=== PATIENT | female | born 1965 | race Caucasian/White ===

== ENCOUNTER 2016-09-02 15:51 | Emergency (ER) | payer OTHER ==
[~2016-09-02] VITALS: Ht 149.9 cm; Wt 59.0 kg
--- NOTE | 2016-09-02 16:49 | RADIOLOGY REPORT ---
EXAMINATION: XR CHEST CLINICAL INFORMATION: Cough. Rule out pneumonia. COMPARISON: 04/23/2009 TECHNIQUE: PA and lateral views of the chest were obtained. FINDINGS: Cardiac and mediastinal silhouette is within normal limits. Lungs are symmetric expanded. There are no pleural effusions or pneumothorax. No focal consolidation. No acute osseous abnormality. IMPRESSION: No evidence of acute process.
--- NOTE | 2016-09-02 17:26 | ED INFLUENZA/URI COMPLAINT ---
History of Present Illness General Chief Complaint: Upper Respiratory Sx/Fever Stated Complaint: COUGH CONGESTION X3 WEEKS SOB O2 SAT 99 Source: patient, old records Exam Limitations: no limitations Vital Signs & Intake/Output Vital Signs & Intake/Output Vital Signs Date Time Temp Pulse Resp B/P Pulse O2 O2 Flow FiO2 Ox Delivery Rate 09/02 1741 98.6 86 18 110/84 98 Room Air 09/02 1608 98.6 66 16 106/69 96 Room Air Allergies Coded Allergies: NO KNOWN ALLERGIES (05/06/11) Reconcile Medications Amoxicillin/Potassium Clav (Augmentin 875-125 Tablet) 875 MG-125 MG TABLET 1 TAB PO BID BRONCHITIS Fluconazole (Diflucan) 150 MG TABLET 1 TAB PO ONCE CANDIDIASIS Mometasone Furoate (Nasonex) 50 MCG SPRAY.PUMP 2 SPRAY NASB DAILY RHINITIS Robitussin AC (Guaifenesin-Codeine Syrup) 200 MG-20 MG/10 ML LIQUID 10 ML PO Q6HR PRN COUGH Triage Note: 51 Y/O FEMALE C/O URI SYMPTOMS X 3 WEEKS DESPITE BEING EVAL'D AT WALK IN TWICE AND BEING ON Z PACK, PREDNISONE AND BREATHING TREATMENTS. REPORTS SINUS CONGESTION "DRIPPING INTO MY LUNGS". PT MOST RECENTLY FINISHED COURSE OF DOXYCYCLINE. SPEAKING COMPLETE SENTENCES WITH NO DISTRESS NOTED, SAT 96% Triage Nurses Notes Reviewed? yes Onset: Abrupt Duration: week(s): (2), constant Timing: recent history Severity: moderate Severity Numbers: 5 Prior Episodes/Possible Cause: occassional episodes No Modifying Factors: none Associated Symptoms: cough, muscle aches, nasal congestion, nasal drainage HPI: 51-year-old female presents to emergency room complaining of a nonproductive cough associated with rhinorrhea congestion generalized bodyaches for the past 3 weeks. The patient has been on 2 courses of azithromycin and doxycycline in addition with prednisone and pro-air inhaler without improvement. She denies any fevers chills shortness of breath chest pain nausea vomiting or diarrhea. The patient is an active smoker. There are no modifying factors or associated symptoms otherwise no recent travel. No pain with inspiration. She denies any abdominal pain chest pain palpitations. The patient is requesting Augmentin today for her symptoms (GAURI MOTT) Past History Travel History Traveled to [place] past 21 day No Medical History Any Pertinent Medical History? none Neurological: NONE EENT: NONE Cardiovascular: NONE Respiratory: NONE Gastrointestinal: NONE Hepatic: NONE Renal: NONE Musculoskeletal: NONE Psychiatric: NONE Endocrine: NONE Blood Disorders: NONE Cancer(s): NONE SEAMLESS TUBE DRAWER/Reproductive: NONE Surgical History Surgical History: none Psychosocial History What is your primary language Russian Tobacco Use: Current Daily Use Daily Tobacco Use Amount/Type: => 5 Cigarettes daily Family History Hx Contributory? No (GAURI MOTT) Review of Systems Review of Systems Constitutional: Reports: see HPI. All Other Systems: Reviewed and Negative Comments Review of systems: See HPI, All other systems negative. Constitutional, no chills no fever, no malaise HEENT: No visual changes no sore throat congestion, Cardiovascular: No chest pain , no palpitation Skin, no rashes, no change in skin Respiratory: No dyspnea cough no sputum GI: No nausea no vomiting, no diarrhea : No dysuria Muscle skeletal: No joint pain,no back pain, no neck pain, Neurologic: No numbness no confusion, no headache Psych: No stress Heme/endocrine: No bruising no bleeding Immunology: No lymphadenopathy (GAURI MOTT) Physical Exam Physical Exam General Appearance: well developed/nourished, alert, awake Ears, Nose, Throat: normal ENT inspection, moist mucous membrane, hearing grossly normal, Tympanic normal Comments: Well-developed well-nourished patient in no apparent distress. Head/Face: Atraumatic, no maxillary/frontal sinus tenderness, no facial swelling Eyes: PERRL, EOMI, no conjunctival injection Ear:External auditory canal and Tympanic membranes clear, no erythema, no FB. Nose: atraumatic.Normal inspection: No bleeding Throat: Moist mucous membranes.Pharynx normal. No pharyngeal erythema/exudate seen. No stridor/drooling or assymetry. No swelling or edema. Neck: Supple, no lymphadenopathy, FROM Back: FROM, Nontender Cardiovascular: Regular rate and rhythms no murmurs rubs or gallops, Respiratory: Chest nontender.There were no bony deformities, no asymmetry. No respiratory distress. Patient speaking in full complete sentences. Breath sounds clear to auscultation bilaterally: NO W/R/R Extremities: full range of motion Neuro: Alert and oriented x3 Skin: Warm & dry;No appreciable rash on exposed skin Psych: Mood affect normal, normal memory normal judgment. Core Measures Severe Sepsis Present: No Septic Shock Present: No (GAURI MOTT) Progress Differential Diagnosis: influenza, pneumonia, pharyngitis, sinusitis, BRONCHITIS Plan of Care: I discussed with the patient her chest x-ray results patient clinically appears well speaking in full complete sentences. Discussed with her at the symptoms are most likely viral etiology however the patient is insistent stating that Augmentin has helped her in the past. We will treat her symptoms supportively with Robitussin with codeine Mucinex, Nasonex. Advise close follow-up with her primary care physician return at anytime sooner with any concerns as her of her questions she feels comfortable with this plan Diagnostic Imaging: Viewed by Me: Radiology Read. Discussed w/RAD: Radiology Read. Radiology Impression: PATIENT: PACO LUCAS PRESENT AGE: 51 PATIENT ACCOUNT NO: [id number] : 65 LOCATION: [facility] [place] ORDERING PHYSICIAN: HAYDEN LAWS MD SERVICE DATE: 09/02/16-160 EXAM TYPE: RAD - XRY- CHEST XRAY, PA AND LATERAL EXAMINATION: XR CHEST CLINICAL INFORMATION: Cough. Rule out pneumonia. COMPARISON: 04/23/2009 TECHNIQUE: PA and lateral views of the chest were obtained. FINDINGS: Cardiac and mediastinal silhouette is within normal limits. Lungs are symmetric expanded. There are no pleural effusions or pneumothorax. No focal consolidation. No acute osseous abnormality. IMPRESSION: No evidence of acute process. DICTATED BY: LORRI FARIAS MD DATE/TIME DICTATED:09/02/161643 PIPELINE SYSTEMS OPERATOR:GLENN DATE/TIME TRANSCRIBED:1643 CONFIDENTIAL, DO NOT COPY WITHOUT APPROPRIATE AUTHORIZATION. < Electronically signed in Other Vendor System> SIGNED BY: LORRI FARIAS MD 09/02/161648 Initial ED EKG: none (GAURI MOTT) Departure Departure Time of Disposition: 1736 Disposition: HOME OR SELF CARE Condition: Stable Clinical Impression Primary Impression: Bronchitis Referrals: PATIENT HAS NO PRIMARY CARE DR (PCP/Family) Additional Instructions: Follow-up with your primary care physician. Robitussin with codeine, Augmentin, Nasonex as directed continue using [id number] Mucinex to help with her symptoms. These prescriptions and Diflucan were sent to your pharmacy Departure Forms: Customer Survey General Discharge Information Prescriptions: Current Visit Scripts Robitussin AC (Guaifenesin-Codeine Syrup) 10 ML PO Q6HR PRN COUGH #200 ML Amoxicillin/Potassium Clav (Augmentin 875-125 Tablet) 1 TAB PO BID #14 TAB Mometasone Furoate (Nasonex) 2 SPRAY NASB DAILY #1 INHAL Fluconazole (Diflucan) 1 TAB PO ONCE #1 TAB (GAURI MOTT) PA/EXPELLER WORKER Co-Sign Statement Statement: ED Attending supervision documentation- x I saw and evaluated the patient. I have also reviewed all the pertinent lab results and diagnostic results. I agree with the findings and the plan of care as documented in the PA's/EXPELLER WORKER's documentation. [] I have reviewed the ED Record and agree with the PA's/EXPELLER WORKER's documentation. [] Additions or exceptions (if any) to the PAs/EXPELLER WORKER's note and plan are summarized below: [] (EUSEBIA MACIAS,HAYDEN)
[2016-09-02] MEDS ORDERED: AUGMENTIN 875-1 EACH PO (17:38)
[2016-09-02] MEDS ORDERED: GUAIFENESIN-COD10 ML PO (17:38)
[2016-09-02] MEDS ORDERED: NASONEX17 GM NASB (17:38)
[2016-09-02] MEDS ORDERED: DIFLUCAN150 M1 PO (17:38)
[2016-09-02 17:41] VITALS: BP 110/84
== END 2016-09-02 17:41 ==
LOC: ERH 15:51
DX: J40 Bronchitis, not specified as acute or chronic (principal); F17.210 Nicotine dependence, cigarettes, uncomplicated